=== PATIENT | male | born 1985 | race Caucasian/White ===

== ENCOUNTER → 2017-11-30 15:44 | Outpatient (CLI) | payer OTHER, MEDICAID, SELFPAY | PROVIDERS: Family Provider Family Medicine; PCP Family Medicine; Visit Provider Otolaryngology | DX: H60.90 Unspecified otitis externa, unspecified ear (principal) | CPT/HCPCS: 87070; 87075; 87076; 87077; 87186; 87205 ==

== ENCOUNTER → 2018-09-27 07:15 | Outpatient (CLI) | payer OTHER, SELFPAY ==
--- NOTE | 2018-09-27 10:36 | NEURO ---
NCS and/or EMG Patient Report Ordering Doctor: Isaak Gooden DATE OF SERVICE: 09/27/18 This is a left upper extremity EMG and nerve conduction study performed on this 33-year-old male with a history of type 2 diabetes with a hemoglobin A1c of 8.5. He reports numbness tingling and weakness in his left hand and arm for a few years worse in the past month. He works in a saw mill. He describes the most significant symptoms as an digit for but to a lesser extent in digits 1 through 3. Digit 5 is unaffected. Left upper extremity sensory motor nerve conduction study demonstrates prolongation of the median motor and sensory distal latency with preservation of amplitudes and conduction velocities. The radial sensory response is normal as is the ulnar sensory response. The median F wave latency is mildly prolonged compared to the ulnar F-wave latency. Left upper extremity needle electromyography is performed. Muscles evaluated included the abductor pollicis brevis, first dorsal interosseous, brachioradialis, biceps, triceps and deltoid muscles. The abductor pollicis brevis muscle strain normal insertional activity with absence of pathologic spontaneous activity however, there was increased amplitude of motor units. All other muscles demonstrated normal insertional activity with absence of pathologic spontaneous activity. Motor unit potential recruitment pattern and amplitude was otherwise normal. Impression this is an abnormal electrophysiologic study of the left upper extremity consistent with moderate to severe carpal tunnel syndrome at the left wrist.
--- OUTSIDE RECORDS SUMMARY | 2018-11-22 11:48 | XMS RPT_ITS ---
:1985 Author Organization OHIP Care Team Providers Name Role Phone Woody Soliman Attending Unavailable Woody Soliman Referring Unavailable LUCINA RIOS Primary Care Unavailable Isaak Gooden Attending Unavailable Isaak Gooden Referring Unavailable LUCINA RIOS Primary Care Unavailable PROBLEMS PROBLEMS DATE TYPE CONDITION / CODE ATTENDING STATUS SOURCE 02/03/2018 Unknown H60.90 - Wilfredo Soliman Unspecified Woody [facility] otitis externa, [facility] unspecified ear / Repository H60.90(ICD-10) PROCEDURES PROCEDURES No Procedure Records FoundRESULTS RESULTS NCS AND/OR EMG Observed: 09/27/2018 Status: F Source: [place] PATIENT 4:37 PM [facility] REPOSITORY [facility] Pulmonary Services/Neurology [address] [place] [address] MR#: [id number] Acct: [id number] Name: TRAY PAYNE Rep #: [id number] : 1985 33 From: Vinny Villanueva MD Referring Dr: Isaak Gayle Status: REG CLI Ordering Dr: Date: Location: [facility] Sex: M C NCS and/or EMG Patient Report Ordering Doctor: Isaak Gooden DATE OF SERVICE: 09/27/18 This is a left upper extremity EMG and nerve conduction study performed on this 33-year-old male with a history of type 2 diabetes with a hemoglobin A1c of 8.5. He reports numbness tingling and weakness in his left hand and arm for a few years worse in the past month. He works in a saw mill. He describes the most significant symptoms as an digit for but to a lesser extent in digits 1 through 3. Digit 5 is unaffected. Left upper extremity sensory motor nerve conduction study demonstrates prolongation of the median motor and sensory distal latency with preservation of amplitudes and conduction velocities. The radial sensory response is normal as is the ulnar sensory response. The median F wave latency is mildly prolonged compared to the ulnar F-wave latency. Left upper extremity needle electromyography is performed. Muscles evaluated included the abductor pollicis brevis, first dorsal interosseous, brachioradialis, biceps, triceps and deltoid muscles. The abductor pollicis brevis muscle strain normal insertional activity with absence of pathologic spontaneous activity however, there was increased amplitude of motor units. All other muscles demonstrated normal insertional activity with absence of pathologic spontaneous activity. Motor unit potential recruitment pattern and amplitude was otherwise normal. Impression this is an abnormal electrophysiologic study of the left upper extremity consistent with moderate to severe carpal tunnel syndrome at the left wrist. 09/27/18 1637 <Electronically signed by Vinny Villanueva MD> Date Vinny Villanueva MD CC: Lucina Rios MD; Vinny Villanueva MD; Isaak CARRERA Date Dictated: 09/27/186 Date Transcribed: [id number]/27/[id number] License Issuer: ROULA Signed CNOV Observed: 08/21/2018 Status: COMPLETED Source: [place] 7:00 AM [facility] REPOSITORY Office Visit (WSTR) TRAY PAYNE ([id number]) 1985 M Date Time Provider Department 08/21/18 7:00 AM [facility] During your visit today, we recorded the following information about you: Temperature Pulse Respiration Blood pressure 97.7 degrees 78/minute 16/minute 122/80 Weight 87.5 kg Sammi LEEROY Alvarez 08/21/2018 7:05 AM Signed Subjective HPI Tray Payne is a 33 year old male who presents today for CC of possible pink eye. He has yellow green drainage, and a red eye. He denies any loss or change of vision or sharp pain in eye. Onset/Duration: Tuesday and is worsening. Alleviating/Treatment: Tried polymixin B sulfate for 2 days without relief Aggravating: nothing Risk factors: H/o conjunctivitis, last problem was 2 weeks ago. BP 122/80 Pulse 78 Temp 36.5 ?C (97.7 ?F) (Tympanic) Resp 16 Wt 87.5 kg (193 lb) ALLERGIES Allergen Reactions - Ciprofloxacin Rash - Seasonal Allergies Unknown There is no problem list on file for this patient. No family history on file. Social History Marital status: Single Spouse name: Years of education: Number of children: Social History Main Topics Smoking status: Never Smoker Smokeless tobacco: Never Used PAST MEDICAL HISTORY Diagnosis Date - Diabetes (HCC) 10/2014 - HTN (hypertension) 10/2014 Review of Systems Constitutional: Negative for chills, fever, malaise/fatigue and weight loss. HENT: Negative for congestion, ear discharge, ear pain and sore throat. Eyes: Positive for discharge and redness. Negative for pain (mild irritation.). Respiratory: Negative for cough. Gastrointestinal: Negative for abdominal pain, diarrhea, nausea and vomiting. Musculoskeletal: Negative for myalgias. Neurological: Negative for headaches. Objective Physical Exam Constitutional: He is oriented to person, place, and time and well-developed, well-nourished, and in no distress. HENT: Head: Normocephalic and atraumatic. Right Ear: Tympanic membrane, external ear and ear canal normal. Tympanic membrane is not injected, not erythematous, not retracted and not bulging. No middle ear effusion. Left Ear: Tympanic membrane, external ear and ear canal normal. Tympanic membrane is not injected, not erythematous, not retracted and not bulging. No middle ear effusion. Nose: Nose normal. Right sinus exhibits no maxillary sinus tenderness and no frontal sinus tenderness. Left sinus exhibits no maxillary sinus tenderness and no frontal sinus tenderness. Mouth/Throat: Uvula is midline, oropharynx is clear and moist and mucous membranes are normal. No oropharyngeal exudate, posterior oropharyngeal edema, posterior oropharyngeal erythema or tonsillar abscesses. Eyes: Pupils are equal, round, and reactive to light. EOM are normal. Right eye exhibits discharge (yellow). Right conjunctiva is injected. Fundoscopic exam: The right eye shows red reflex. The left eye shows red reflex. Neck: Normal range of motion. Neck supple. Pulmonary/Chest: Effort normal. Lymphadenopathy: Head (right side): No submental, no submandibular, no tonsillar, no preauricular and no posterior auricular adenopathy present. Head (left side): No submental, no submandibular, no tonsillar, no preauricular and no posterior auricular adenopathy present. He has no cervical adenopathy. Right: No supraclavicular adenopathy present. Left: No supraclavicular adenopathy present. Neurological: He is alert and oriented to person, place, and time. Skin: Skin is warm and dry. Psychiatric: Affect normal. Nursing note and vitals reviewed. ASSESSMENT/PLAN: 1. Acute conjunctivitis of right eye, unspecified acute conjunctivitis type - ICD9: 372.00, ICD10: H10.31 - see medication orders - course and contagiousness issues discussed, including hand washing. - Instructed to call if high fever, development of periorbital redness or swelling, eye pain, visual changes, concerns or if symptoms persist. - ERYTHROMYCIN 5 MG/GRAM (0.5 %) EYE OINTMENT Wash eye/eyes with diluted baby shampoo morning and night to remove crusted secretions. Place one drop of shampoo on washcloth and dilute with warm water and gently wash eyes. Use a different washcloth for each eye or you can use eye makeup remover pads for cleansing as well. Cool compresses for eye inflammation/irritation frequently throughout the day. Go to ER for any sudden loss of vision or severe vision changes. Follow up with PCP if no improvement in 1 week. Diagnosis and treatment plan were discussed and questions were answered to the patient's satisfaction. Pt acknowledged understanding of concepts and follow up plan. Specific signs and symptoms that would indicate the need for higher level of care were discussed in detail warranting prompt ER evaluation. LEEROY Johnson APRN.CNP 08/21/2018 7:03 AM Signed ASSESSMENT/PLAN: 1. Acute conjunctivitis of right eye, unspecified acute conjunctivitis type - ICD9: 372.00, ICD10: H10.31 - see medication orders - course and contagiousness issues discussed, including hand washing. - Instructed to call if high fever, development of periorbital redness or swelling, eye pain, visual changes, concerns or if symptoms persist. - ERYTHROMYCIN 5 MG/GRAM (0.5 %) EYE OINTMENT Wash eye/eyes with diluted baby shampoo morning and night to remove crusted secretions. Place one drop of shampoo on washcloth and dilute with warm water and gently wash eyes. Use a different washcloth for each eye or you can use eye makeup remover pads for cleansing as well. Cool compresses for eye inflammation/irritation frequently throughout the day. Go to ER for any sudden loss of vision or severe vision changes. Follow up with PCP if no improvement in 1 week. Referring Provider: SELF [[id number]] Allergies As of Date: 08/21/2018 Noted Allergy Reaction CIPROFLOXACIN 01/20/2018 2 - Rash SEASONAL ALLERGIES 09/27/2014 16 - Unknown Date Reviewed: 08/21/2018 Reviewed by: Sammi Alvarez - Fully Assessed Reason for Visit: Eye Problem [43] Cmt: right eye red, matting and swollen x 2 days, using polytrim Reason For Visit History Recorded Primary Visit Diagnosis:Acute conjunctivitis of right eye, unspecified acute conjunctivitis type [H10.31] Order(s):erythromycin ophthalmic ointmentUse 1 application in both eyes twice daily for 7 days.Disp: 3.5 gRfl: 0 Prescriptions as of 08/21/2018 Sig: METFORMIN ORAL Take by mouth. CLARITIN ORAL Take by mouth. LISINOPRIL ORAL Take by mouth. INVOKANA ORAL Take by mouth. GLIPIZIDE ORAL Take by mouth. FLONASE NASAL Use in the nose. ERYTHROMYCIN 5 MG/GRAM (0.5 %* Use 1 application in both eye* CIPROFLOXACIN 0.3 %-DEXAMETHA* Use 4 Drops in the right ear * Patient not taking: Reported on 08/21/2018 CIPROFLOXACIN 0.3 %-DEXAMETHA* Use 4 Drops in the right ear * Patient not taking: Reported on 08/21/2018 Problem List As Of Date: 08/21/2018 (None) Other instructions from your clinician: ASSESSMENT/PLAN: 1. Acute conjunctivitis of right eye, unspecified acute conjunctivitis type - ICD9: 372.00, ICD10: H10.31 - see medication orders - course and contagiousness issues discussed, including hand washing. - Instructed to call if high fever, development of periorbital redness or swelling, eye pain, visual changes, concerns or if symptoms persist. - ERYTHROMYCIN 5 MG/GRAM (0.5 %) EYE OINTMENT Wash eye/eyes with diluted baby shampoo morning and night to remove crusted secretions. Place one drop of shampoo on washcloth and dilute with warm water and gently wash eyes. Use a different washcloth for each eye or you can use eye makeup remover pads for cleansing as well. Cool compresses for eye inflammation/irritation frequently throughout the day. Go to ER for any sudden loss of vision or severe vision changes. Follow up with PCP if no improvement in 1 week. Prescriptions ordered this encounter Disp Refills Start End ERYTHROMYCIN 5 MG/GRAM (0.5 %) EYE O* 3.5 g 0 08/21/2018 08/28/2018 Route: BOTH EYES Sig: Use 1 application in both eyes twice daily for 7 days. Letter Text Sammi Alvarez APRN.CNP Urgent Care [address] [address] Dept: [phone] 08/21/2018 Tray Payne [address] [address] To Whom it May Concern: This is to certify that Tray Adarsh Payne was seen at our office for medical care. Tray may return to work on 08.22.2018. If you have any questions please feel free to call. Sincerely: Sammi Alvarez APRN.CNP Encounter Status:Closed by SAMMI ALVAREZ CNP on 08/21/18 PROGRESS Observed: 08/21/2018 Status: COMPLETED Source: [place] 6:56 AM [facility] RE[facility] HNO ID: [id number] Author: Sammi Alvarez Service: (none) Author Type: Nurse Practitioner Type: Progress Notes Filed: 08/21/2018 7:05 AM Note Text: Subjective HPI Tray Payne is a 33 year old male who presents today for CC of possible pink eye. He has yellow green drainage, and a red eye. He denies any loss or change of vision or sharp pain in eye. Onset/Duration: Tuesday and is worsening. Alleviating/Treatment: Tried polymixin B sulfate for 2 days without relief Aggravating: nothing Risk factors: H/o conjunctivitis, last problem was 2 weeks ago. BP 122/80 Pulse 78 Temp 36.5 ?C (97.7 ?F) (Tympanic) Resp 16 Wt 87.5 kg (193 lb) ALLERGIES Allergen Reactions - Ciprofloxacin Rash - Seasonal Allergies Unknown There is no problem list on file for this patient. No family history on file. Social History Marital status: Single Spouse name: Years of education: Number of children: Social History Main Topics Smoking status: Never Smoker Smokeless tobacco: Never Used PAST MEDICAL HISTORY Diagnosis Date - Diabetes (HCC) 10/2014 - HTN (hypertension) 10/2014 Review of Systems Constitutional: Negative for chills, fever, malaise/fatigue and weight loss. HENT: Negative for congestion, ear discharge, ear pain and sore throat. Eyes: Positive for discharge and redness. Negative for pain (mild irritation.). Respiratory: Negative for cough. Gastrointestinal: Negative for abdominal pain, diarrhea, nausea and vomiting. Musculoskeletal: Negative for myalgias. Neurological: Negative for headaches. Objective Physical Exam Constitutional: He is oriented to person, place, and time and well-developed, well-nourished, and in no distress. HENT: Head: Normocephalic and atraumatic. Right Ear: Tympanic membrane, external ear and ear canal normal. Tympanic membrane is not injected, not erythematous, not retracted and not bulging. No middle ear effusion. Left Ear: Tympanic membrane, external ear and ear canal normal. Tympanic membrane is not injected, not erythematous, not retracted and not bulging. No middle ear effusion. Nose: Nose normal. Right sinus exhibits no maxillary sinus tenderness and no frontal sinus tenderness. Left sinus exhibits no maxillary sinus tenderness and no frontal sinus tenderness. Mouth/Throat: Uvula is midline, oropharynx is clear and moist and mucous membranes are normal. No oropharyngeal exudate, posterior oropharyngeal edema, posterior oropharyngeal erythema or tonsillar abscesses. Eyes: Pupils are equal, round, and reactive to light. EOM are normal. Right eye exhibits discharge (yellow). Right conjunctiva is injected. Fundoscopic exam: The right eye shows red reflex. The left eye shows red reflex. Neck: Normal range of motion. Neck supple. Pulmonary/Chest: Effort normal. Lymphadenopathy: Head (right side): No submental, no submandibular, no tonsillar, no preauricular and no posterior auricular adenopathy present. Head (left side): No submental, no submandibular, no tonsillar, no preauricular and no posterior auricular adenopathy present. He has no cervical adenopathy. Right: No supraclavicular adenopathy present. Left: No supraclavicular adenopathy present. Neurological: He is alert and oriented to person, place, and time. Skin: Skin is warm and dry. Psychiatric: Affect normal. Nursing note and vitals reviewed. ASSESSMENT/PLAN: 1. Acute conjunctivitis of right eye, unspecified acute conjunctivitis type - ICD9: 372.00, ICD10: H10.31 - see medication orders - course and contagiousness issues discussed, including hand washing. - Instructed to call if high fever, development of periorbital redness or swelling, eye pain, visual changes, concerns or if symptoms persist. - ERYTHROMYCIN 5 MG/GRAM (0.5 %) EYE OINTMENT Wash eye/eyes with diluted baby shampoo morning and night to remove crusted secretions. Place one drop of shampoo on washcloth and dilute with warm water and gently wash eyes. Use a different washcloth for each eye or you can use eye makeup remover pads for cleansing as well. Cool compresses for eye inflammation/irritation frequently throughout the day. Go to ER for any sudden loss of vision or severe vision changes. Follow up with PCP if no improvement in 1 week. Diagnosis and treatment plan were discussed and questions were answered to the patient's satisfaction. Pt acknowledged understanding of concepts and follow up plan. Specific signs and symptoms that would indicate the need for higher level of care were discussed in detail warranting prompt ER evaluation. Sammi Alvarez APRN.CRITICAL SYSTEMS TECHNICIAN PROGRESS Observed: 01/20/2018 Status: COMPLETED Source: [place] 9:22 AM [facility] REPOSITORY HNO ID: [id number] Author: Shahana (Judah) DONAL Ni.JUDAH Service: (none) Author Type: Nurse Practitioner Type: Progress Notes Filed: 01/20/2018 9:41 AM Note Text: Subjective HPI Tray Payne is a 32 year old male who presents with right eye feeling itchy and red, having a small amount of discharge. Two children currently have pink eye. He has not had any associated URI symptoms. Review of Systems Constitutional: Negative. Negative for chills and fever. HENT: Negative. Negative for congestion and sore throat. Eyes: Positive for discharge and redness. Respiratory: Negative. Negative for cough. Skin: Negative. Negative for rash. BP 118/82 Pulse 96 Temp 37.2 ?C (99 ?F) (Left Tympanic) Resp 24 Wt 93.4 kg (206 lb) PAST MEDICAL HISTORY Diagnosis Date - Diabetes (HCC) 10/2014 - HTN (hypertension) 10/2014 No past surgical history on file. ALLERGIES Ciprofloxacin; Seasonal Allergies MEDICATIONS trimethoprim-polymyxin eye drops (POLYTRIM) ophthalmic solution Use 1 Drop in the right eye four times daily for 7 days. ciprofloxacin-dexamethasone (CIPRODEX) otic suspension Use 4 Drops in the right ear twice daily. ciprofloxacin-dexamethasone (CIPRODEX) otic suspension Use 4 Drops in the right ear twice daily. METFORMIN HCL (METFORMIN ORAL) Take by mouth. LORATADINE (CLARITIN ORAL) Take by mouth. LISINOPRIL ORAL Take by mouth. CANAGLIFLOZIN (INVOKANA ORAL) Take by mouth. GLIPIZIDE ORAL Take by mouth. FLUTICASONE PROPIONATE (FLONASE NASAL) Use in the nose. No family history on file. Social History Substance Use Topics - Smoking status: Never Smoker - Smokeless tobacco: Never Used - Alcohol use Not on file Objective Physical Exam Constitutional: He is well-developed, well-nourished, and in no distress. HENT: Head: Normocephalic. Right Ear: Tympanic membrane, external ear and ear canal normal. Left Ear: Tympanic membrane, external ear and ear canal normal. Nose: Nose normal. No rhinorrhea. Mouth/Throat: Uvula is midline, oropharynx is clear and moist and mucous membranes are normal. Mucous membranes are not pale and not dry. No posterior oropharyngeal edema or posterior oropharyngeal erythema. Eyes: EOM are normal. Pupils are equal, round, and reactive to light. Right eye exhibits discharge. Left eye exhibits no discharge. Right conjunctiva is injected. Left conjunctiva is not injected. Neck: Neck supple. Cardiovascular: Normal rate, regular rhythm and normal heart sounds. Pulmonary/Chest: Effort normal and breath sounds normal. No respiratory distress. He has no wheezes. Lymphadenopathy: He has no cervical adenopathy. Neurological: He is alert. Skin: Skin is warm and dry. No rash noted. Nursing note and vitals reviewed. ASSESSMENT/PLAN: 1. Bacterial conjunctivitis - ICD9: 372.39, 041.9, ICD10: H10.9 - see medication orders - course and contagiousness issues discussed, including hand washing. - Instructed to call if high fever, development of periorbital redness or swelling, eye pain, visual changes, concerns or if symptoms persist. - Follow-up with your PCP in 3-5 days if symptoms have not improved or sooner if symptoms worsen - Discussed red flags and need for immediate medical evaluation if any occur. - Discussed supportive care treatment with fluids, rest and analgesia. - Discussed expected course of illness Shahana Ni APRN.CNP CNOV Observed: 01/20/2018 Status: COMPLETED Source: [place] 9:00 AM [facility] REPOSITORY Office Visit (WSTR) TRAY PAYNE ([id number]) 1985 M Date Time Provider Department 01/20/18 9:00 AM SHAHANA NI (JUDAH) [facility] During your visit today, we recorded the following information about you: Temperature Pulse Respiration Blood pressure 99 degrees 96/minute 24/minute 118/82 Weight 93.4 kg Shahana Ni APRN.CNP, APRN.CNP 01/20/2018 9:41 AM Addendum Subjective HPI Tray Payne is a 32 year old male who presents with right eye feeling itchy and red, having a small amount of discharge. Two children currently have pink eye. He has not had any associated URI symptoms. Review of Systems Constitutional: Negative. Negative for chills and fever. HENT: Negative. Negative for congestion and sore throat. Eyes: Positive for discharge and redness. Respiratory: Negative. Negative for cough. Skin: Negative. Negative for rash. BP 118/82 Pulse 96 Temp 37.2 ?C (99 ?F) (Left Tympanic) Resp 24 Wt 93.4 kg (206 lb) PAST MEDICAL HISTORY Diagnosis Date - Diabetes (HCC) 10/2014 - HTN (hypertension) 10/2014 No past surgical history on file. ALLERGIES Ciprofloxacin; Seasonal Allergies MEDICATIONS trimethoprim-polymyxin eye drops (POLYTRIM) ophthalmic solution Use 1 Drop in the right eye four times daily for 7 days. ciprofloxacin-dexamethasone (CIPRODEX) otic suspension Use 4 Drops in the right ear twice daily. ciprofloxacin-dexamethasone (CIPRODEX) otic suspension Use 4 Drops in the right ear twice daily. METFORMIN HCL (METFORMIN ORAL) Take by mouth. LORATADINE (CLARITIN ORAL) Take by mouth. LISINOPRIL ORAL Take by mouth. CANAGLIFLOZIN (INVOKANA ORAL) Take by mouth. GLIPIZIDE ORAL Take by mouth. FLUTICASONE PROPIONATE (FLONASE NASAL) Use in the nose. No family history on file. Social History Substance Use Topics - Smoking status: Never Smoker - Smokeless tobacco: Never Used - Alcohol use Not on file Objective Physical Exam Constitutional: He is well-developed, well-nourished, and in no distress. HENT: Head: Normocephalic. Right Ear: Tympanic membrane, external ear and ear canal normal. Left Ear: Tympanic membrane, external ear and ear canal normal. Nose: Nose normal. No rhinorrhea. Mouth/Throat: Uvula is midline, oropharynx is clear and moist and mucous membranes are normal. Mucous membranes are not pale and not dry. No posterior oropharyngeal edema or posterior oropharyngeal erythema. Eyes: EOM are normal. Pupils are equal, round, and reactive to light. Right eye exhibits discharge. Left eye exhibits no discharge. Right conjunctiva is injected. Left conjunctiva is not injected. Neck: Neck supple. Cardiovascular: Normal rate, regular rhythm and normal heart sounds. Pulmonary/Chest: Effort normal and breath sounds normal. No respiratory distress. He has no wheezes. Lymphadenopathy: He has no cervical adenopathy. Neurological: He is alert. Skin: Skin is warm and dry. No rash noted. Nursing note and vitals reviewed. ASSESSMENT/PLAN: 1. Bacterial conjunctivitis - ICD9: 372.39, 041.9, ICD10: H10.9 - see medication orders - course and contagiousness issues discussed, including hand washing. - Instructed to call if high fever, development of periorbital redness or swelling, eye pain, visual changes, concerns or if symptoms persist. - Follow-up with your PCP in 3-5 days if symptoms have not improved or sooner if symptoms worsen - Discussed red flags and need for immediate medical evaluation if any occur. - Discussed supportive care treatment with fluids, rest and analgesia. - Discussed expected course of illness LEEROY Agee APRN.CNP, APRN.CNP 01/20/2018 9:29 AM Signed CONJUNCTIVITIS GENERAL INFORMATION: Conjunctivitis is also known as pink eye. It is an irritation of the underside of the eyelid and the white part of the eye. Conjunctivitis can be caused by infection, chemical irritation, or allergy. If infectious, it is very contagious. INSTRUCTIONS: The doctor has prescribed antibiotic drops or ointment. Use them as prescribed. Do not touch the dropper to the eye. Throw out the medication after completing treatment. If the doctor only prescribed the medication to be placed in one eye, and the other eye starts to bother you with the same symptoms, you may treat it in the same fashion. To ease discomfort, apply a warm or cool clean washcloth to your eye several times a day for 10 to 20 minutes. Gently wipe away discharge from the eyes with tissues. Wash your hands often with soap and use paper towels to dry them. Do not share towels, washcloths, or pillows. This could spread infection. Do not use eye make-up until the infection has resolved. Keep contact lenses out of eyes until the irritation is gone. Discard any eye make-up which you may have contaminated before the infection was diagnosed, and any eye make-up older than one year. Children should not return to school or daycare until the eye is no longer pink. Do not drive or operate machinery if your vision is blurred. Wear sunglasses if your eyes are sensitive to the light. CONTACT YOUR DOCTOR IF YOU OR YOUR CHILD NOTICE: *The eye is still pink 3 days after starting treatment with medicine. *Pain in the eye increases. *The redness is spreading. *Vision becomes blurred. *You have a temperature over 100.5 F (38 C). Referring Provider: SELF [200] Allergies As of Date: 01/20/2018 Noted Allergy Reaction CIPROFLOXACIN 01/20/2018 2 - Rash SEASONAL ALLERGIES 09/27/2014 16 - Unknown Date Reviewed: 01/20/2018 Reviewed by: Alexandria Paredes Ma - Fully Assessed Reason for Visit: Eye Problem [43] Primary Visit Diagnosis:Bacterial conjunctivitis [H10.9] Order(s):trimethoprim-polymyxin eye drops (POLYTRIM) ophthalmic solutionUse 1 Drop in the right eye four times daily for 7 days.Disp: 1.4 mLRfl: 0 Prescriptions as of 01/20/2018 Sig: POLYMYXIN B SULFATE 10,000 UN* Use 1 Drop in the right eye f* CIPROFLOXACIN 0.3 %-DEXAMETHA* Use 4 Drops in the right ear * CIPROFLOXACIN 0.3 %-DEXAMETHA* Use 4 Drops in the right ear * METFORMIN ORAL Take by mouth. CLARITIN ORAL Take by mouth. LISINOPRIL ORAL Take by mouth. INVOKANA ORAL Take by mouth. GLIPIZIDE ORAL Take by mouth. FLONASE NASAL Use in the nose. Problem List As Of Date: 01/20/2018 (None) Other instructions from your clinician: CONJUNCTIVITIS GENERAL INFORMATION: Conjunctivitis is also known as pink eye. It is an irritation of the underside of the eyelid and the white part of the eye. Conjunctivitis can be caused by infection, chemical irritation, or allergy. If infectious, it is very contagious. INSTRUCTIONS: The doctor has prescribed antibiotic drops or ointment. Use them as prescribed. Do not touch the dropper to the eye. Throw out the medication after completing treatment. If the doctor only prescribed the medication to be placed in one eye, and the other eye starts to bother you with the same symptoms, you may treat it in the same fashion. To ease discomfort, apply a warm or cool clean washcloth to your eye several times a day for 10 to 20 minutes. Gently wipe away discharge from the eyes with tissues. Wash your hands often with soap and use paper towels to dry them. Do not share towels, washcloths, or pillows. This could spread infection. Do not use eye make-up until the infection has resolved. Keep contact lenses out of eyes until the irritation is gone. Discard any eye make-up which you may have contaminated before the infection was diagnosed, and any eye make-up older than one year. Children should not return to school or daycare until the eye is no longer pink. Do not drive or operate machinery if your vision is blurred. Wear sunglasses if your eyes are sensitive to the light. CONTACT YOUR DOCTOR IF YOU OR YOUR CHILD NOTICE: *The eye is still pink 3 days after starting treatment with medicine. *Pain in the eye increases. *The redness is spreading. *Vision becomes blurred. *You have a temperature over 100.5 F (38 C). Prescriptions ordered this encounter Disp Refills Start End POLYMYXIN B SULFATE 10,000 UNIT-TRIM* 1.4 * 0 01/20/2018 01/27/2018 Route: RIGHT EYE Sig: Use 1 Drop in the right eye four times daily for 7 days. Letter Text Shahana Ni APRN.[facility] Ur[facility] [address] [address] Dept: [phone] 01/20/2018 Tray Payne [facility] [address] To Whom it May Concern: This is to certify that Tray Payne was seen at our office for medical care. Tray must be absent from work today 01/20/18. If you have any questions please feel free to call. Sincerely: Shahana Ni APRN.[facility] Encounter Status:Closed by SHAHANA NI on 01/20/18 Observed: 11/30/2017 Status: F Source: JEANIE CULTURE, EAR/MASTOID 8:28 AM [facility] REPOSITORY RESULTS CALLED TO SHAHANA 12/02/17 0908 Gemma Wirght. REPORT READ BACK BY SAME. Comments: OTITIS EXTERNA Gram Stain Gram Stain 1+ White Blood Cells 3+ Gram positive cocci Ear/Mast Cult Copy of report sent to Infection Control Printer [id number] 12/02/17 0748 [facility]. ORGANISM 1: Meth. resistant Staph. aureus Amount Growth 3+ Meth. resistant Staph. aureus: REACTION Benzylpenicillin NF >=0.5 R Cefoxitin *NF + Clindamycin $$ <=0.25 S Inducable Clindamycin Resistan - Erythromycin $ >=8 R Gentamicin $ <=0.5 S Levofloxacin $ 4 I Linezolid $$$$ 2 S Oxacillin NF >=4 R Tigecycline $$$$ <=0.12 S Rifampin $$ <=0.5 S Tetracycline NF <=1 S Trimethoprim/Sulfametho $ <=10 S Vancomycin $ 1 S (NF) indicates non-formulary drug at [facility]. Approval by Infectious Disease Specialist required before non-formulary drugs may be ordered and/or dispensed. * CLSI guidelines does not recommend testing of cephalosporins. This interpretation is deduced from Beta-lactam/penicillin results. Cult, Anaerobic ORGANISM 1: Proprionibacterium acnes Performed By: #### M100.1100 #### [facility] [address] [place], [address] PROGRESS Observed: 10/31/2017 Status: COMPLETED Source: [place] 11:22 AM [facility] REPOSITORY [facility] ID: [id number] Author: Binta Diaz (Pa) Service: (none) Author Type: Physician Dynamo Repairer Type: Progress Notes Filed: 10/31/2017 11:34 AM Note Text: HPI 32 yo male presents with right ear pain x 10 days. He states that he has been treated for right ear infections since May 2017. He has been treated with Ciprodex and Amoxicillin and Augmentin on two separate occasions. He states that he has plans to see an ENT in the very near future. Review of Systems Constitutional: Negative for chills and fever. HENT: Positive for ear discharge and ear pain. Negative for hearing loss and tinnitus. All other systems reviewed and are negative. PAST MEDICAL HISTORY Diagnosis Date - Diabetes (HCC) 10/2014 - HTN (hypertension) 10/2014 No past surgical history on file. ALLERGIES Seasonal Allergies MEDICATIONS ciprofloxacin-dexamethasone (CIPRODEX) otic suspension Use 4 Drops in the right ear twice daily. METFORMIN HCL (METFORMIN ORAL) Take by mouth. LORATADINE (CLARITIN ORAL) Take by mouth. LISINOPRIL ORAL Take by mouth. CANAGLIFLOZIN (INVOKANA ORAL) Take by mouth. GLIPIZIDE ORAL Take by mouth. FLUTICASONE PROPIONATE (FLONASE NASAL) Use in the nose. No family history on file. Social History Substance Use Topics - Smoking status: Never Smoker - Smokeless tobacco: Never Used - Alcohol use Not on file Physical Exam Constitutional: He is oriented to person, place, and time and well-developed, well-nourished, and in no distress. HENT: Left Ear: External ear normal. Right ear: erythematous and edematous EAC. TM: with large effusion. Eyes: Conjunctivae are normal. Neck: Normal range of motion. Neck supple. Cardiovascular: Normal rate, normal heart sounds and intact distal pulses. Pulmonary/Chest: Effort normal. No stridor. Abdominal: Soft. Bowel sounds are normal. Lymphadenopathy: He has no cervical adenopathy. Neurological: He is alert and oriented to person, place, and time. Skin: Skin is warm and dry. Psychiatric: Affect normal. Blood pressure 120/86, pulse 104, temperature 36.9 ?C (98.5 ?F), temperature source Tympanic, resp. rate 22, weight 93 kg (205 lb). ASSESSMENT/PLAN: 1. Acute otitis externa of right ear, unspecified type - ICD9: 380.10, ICD10: H60.501 (primary diagnosis) - CIPROFLOXACIN 0.3 %-DEXAMETHASONE 0.1 % EAR DROPS,SUSPENSION 2. Acute otitis media, right - ICD9: 382.9, ICD10: H66.91 - The patient should also be given OTC decongestants prn for the first 5-7 days of treatment. - AMOXICILLIN 500 MG TABLET Recommend ENT consultation. Return to the clinic if needed. THOMAS Samuels Observed: 10/31/2017 Status: COMPLETED Source: [place] 10:30 AM [facility] REPOSITORY [facility] TRAY [facility]YNE ([id number]) 1985 M Date Time Provider Department 10/31/17 10:30 AM BINTA DIAZ (DEBI) [facility] During your visit today, we recorded the following information about you: Temperature Pulse Respiration Blood pressure 98.5 degrees 104/minute 22/minute 120/86 Weight 93 kg Binta Diaz PA-C 10/31/2017 11:34 AM Signed HPI 32 yo male presents with right ear pain x 10 days. He states that he has been treated for right ear infections since May 2017. He has been treated with Ciprodex and Amoxicillin and Augmentin on two separate occasions. He states that he has plans to see an ENT in the very near future. Review of Systems Constitutional: Negative for chills and fever. HENT: Positive for ear discharge and ear pain. Negative for hearing loss and tinnitus. All other systems reviewed and are negative. PAST MEDICAL HISTORY Diagnosis Date - Diabetes (HCC) 10/2014 - HTN (hypertension) 10/2014 No past surgical history on file. ALLERGIES Seasonal Allergies MEDICATIONS ciprofloxacin-dexamethasone (CIPRODEX) otic suspension Use 4 Drops in the right ear twice daily. METFORMIN HCL (METFORMIN ORAL) Take by mouth. LORATADINE (CLARITIN ORAL) Take by mouth. LISINOPRIL ORAL Take by mouth. CANAGLIFLOZIN (INVOKANA ORAL) Take by mouth. GLIPIZIDE ORAL Take by mouth. FLUTICASONE PROPIONATE (FLONASE NASAL) Use in the nose. No family history on file. Social History Substance Use Topics - Smoking status: Never Smoker - Smokeless tobacco: Never Used - Alcohol use Not on file Physical Exam Constitutional: He is oriented to person, place, and time and well-developed, well-nourished, and in no distress. HENT: Left Ear: External ear normal. Right ear: erythematous and edematous EAC. TM: with large effusion. Eyes: Conjunctivae are normal. Neck: Normal range of motion. Neck supple. Cardiovascular: Normal rate, normal heart sounds and intact distal pulses. Pulmonary/Chest: Effort normal. No stridor. Abdominal: Soft. Bowel sounds are normal. Lymphadenopathy: He has no cervical adenopathy. Neurological: He is alert and oriented to person, place, and time. Skin: Skin is warm and dry. Psychiatric: Affect normal. Blood pressure 120/86, pulse 104, temperature 36.9 ?C (98.5 ?F), temperature source Tympanic, resp. rate 22, weight 93 kg (205 lb). ASSESSMENT/PLAN: 1. Acute otitis externa of right ear, unspecified type - ICD9: 380.10, ICD10: H60.501 (primary diagnosis) - CIPROFLOXACIN 0.3 %-DEXAMETHASONE 0.1 % EAR DROPS,SUSPENSION 2. Acute otitis media, right - ICD9: 382.9, ICD10: H66.91 - The patient should also be given OTC decongestants prn for the first 5-7 days of treatment. - AMOXICILLIN 500 MG TABLET Recommend ENT consultation. Return to the clinic if needed. Binta Diaz PA-C Referring Provider: SELF [200] Allergies As of Date: 10/31/2017 Noted Allergy Reaction SEASONAL ALLERGIES 09/27/2014 16 - Unknown Date Reviewed: 10/31/2017 Reviewed by: Laura Chapman LPN - Fully Assessed Reason for Visit: Ear Pain [817] Cmt: Right x 10 day Primary Visit Diagnosis:Acute otitis externa of right ear, unspecified type [H60.501] Other Visit Diagnosis:Acute otitis media, right [H66.91] Order(s):Amoxicillin 500 mg tabletTake 1 tablet by mouth twice daily for 10 days.Disp: 20 tabletRfl: 0 ciprofloxacin-dexamethasone (CIPRODEX) otic suspensionUse 4 Drops in the right ear twice daily.Disp: 1 BottleRfl: 0 Prescriptions as of 10/31/2017 Sig: CIPROFLOXACIN 0.3 %-DEXAMETHA* Use 4 Drops in the right ear * METFORMIN ORAL Take by mouth. CLARITIN ORAL Take by mouth. LISINOPRIL ORAL Take by mouth. INVOKANA ORAL Take by mouth. GLIPIZIDE ORAL Take by mouth. FLONASE NASAL Use in the nose. AMOXICILLIN 500 MG TABLET Take 1 tablet by mouth twice * CIPROFLOXACIN 0.3 %-DEXAMETHA* Use 4 Drops in the right ear * Medication notes this encounter CIPROFLOXACIN 0.3 %-DEXAMETHASONE 0.1 % EAR DROPS,SUSPENSION >> Laura Chapman LPN 10/31/2017 10:57 AM >> LAURA CHAPMAN LPN TueOct 31, 2017 10:57 AM Not taking Problem List As Of Date: 10/31/2017 (None) Prescriptions ordered this encounter Disp Refills Start End AMOXICILLIN 500 MG TABLET 20 t* 0 10/31/2017 11/10/2017 Route: ORAL Sig: Take 1 tablet by mouth twice daily for 10 days. CIPROFLOXACIN 0.3 %-DEXAMETHASONE 0.* 1 Rene* 0 10/31/2017 Route: RIGHT EAR Sig: Use 4 Drops in the right ear twice daily. Encounter Status:Closed by FARSHAD GUZMAN, BINTA on 10/31/17 ALLERGIES ALLERGIES DATE TYPE / CODE NAME / CODE REACTION SEVERITY SOURCE 01/20/2018 DRUG CIPROFLOXACIN RASH [facility] INGREDI/[address] [place] [id number](SNOM Repository ED CT) 12/25/2015 Drug No Known Unknown Jeanie Allergy/416 Allergies/[id number] [facility] [id number]([facility](RXNORM) [facility] ED CT) Repository 09/27/2014 Environ/420 SEASONAL ALLERGIES UNKNOWN [facility] [id number]([facility] ED CT) Repository ENCOUNTERS ENCOUNTERS ADMIT/DISCHARGE ACCOUNT ADMITTING ENCOUNTER LOCATION SOURCE NUMBER CLASS 09/27/2018 [id number] [facility] ing:PSN Repository 08/21/2018/08/23/20 [id number] Ambulatory [address] Repository 01/20/2018/01/21/[id number] Repository 11/30/2017 [id number] [facility] ing:LABSPEC Repository 10/31/2017/11/01/[id number] Repository PAYERS PAYERS ENCOUNTER GUARANTOR PAYER SUBSCRIBER SOURCE 09/27/2018 TRAY A Primary TRAY A Jeanie [id number] Insurance:Eliseo NAIDU: [facility] [place]: [id number] [id number] Repository [address]Zrq: 330) Date:[phone] () [id number] BALL [phone]: 09/27/2018 Secondary NOT GIVENUNK Curtis Insurance:SELF PAY [facility] Number: Effective Repository Date:2018-08-15 11/30/2017 Tray A Primary Tray A Jeanie [id number] Insurance:AETMiguelito PayneDOB: [facility] Number: [id number] [id number] Repository [address]Fuc: 330) Date:[phone] (QA) [id number] FRANCY SIMMS [id number]: 11/30/2017 Secondary Tray Ware Insurance:CARELANDRY LoveB: [facility] Number: [id number] [id number] Repository Date:2017-11-30 [address]ATTN: [place] [address]IH: 11/30/2017 Tertiary NOT GIVENBOB Ware Insurance:SELF PAY [facility] Number: Effective Repository Date:2017-11-30
== END ==
PROVIDERS: Family Provider Family Medicine; PCP Family Medicine; Referring Provider Physician Assistant; Visit Provider Physician Assistant
DX: R20.2 Paresthesia of skin (principal)
CPT/HCPCS: 95886; 95909

== ENCOUNTER 2020-01-06 17:15 | Emergency (ER) | payer OTHER, SELFPAY ==
[2020-01-06 17:16] VITALS: BP 122/73; PULSE 88; RESP 17; TEMP 36.2; O2SAT 96; BMI 62.1
--- NOTE | 2020-01-06 17:35 | EKG12_ITS ---
Test Reason : GENERAL ILLNESS Blood Pressure : / mmHG Vent. Rate : 088 BPM Atrial Rate : 088 BPM P-R Int : 144 ms QRS Dur : 110 ms QT Int : 384 ms P-R-T Axes : 044 104 044 degrees QTc Int : 464 ms Normal sinus rhythm Rightward axis Borderline ECG Confirmed by DAPHNE ANDRE, CLIFF ([id number]), restaurant expeditor RENE MAGUIRE ([id number]) on 01/07/2020 3:22:54 PM Referred By: AMY Confirmed By:CLIFF SERNA MD
[2020-01-06 17:36] LABS: Bedside Glucose 256 mg/dL (70-110)
[2020-01-06 17:46] LABS: Absolute Lymphocyte Count 0.36 X10^3/uL (0.83-4.51); Absolute Neutrophil Count 15.6 X10^3/uL (2.0-7.7); Basophil# 0.03 X10^3/uL; Basophil% 0.2 % (0-1); Eosinophil# 0.07 X10^3/uL; Eosinophils% 0.4 % (0-5); Hematocrit 51.4 % (40-54); Lymphocyte # 0.36 X10^3/ul (4.0); Lymphocyte % 2.1 % (19-41); Mean Corp Hgb Conc 33.1 g/dL (32-36); Mean Corpuscular Hgb 28.5 pg (27.0-32.0); Mean Corpuscular Volume 86.2 fL (80-94); Mean Platelet Vol. 11.2 fl (6.2-12.0); Monocyte# 0.76 X10^3/uL; Monocyte% 4.5 % (0-10); NRBC Flagged by Analyzer 0 % (0-5); Neutrophil # 15.61 X10^3/uL (2.7-7.7); Neutrophil % 92.2 % (47-70); POSITIVE COUNT YES; POSITIVE DIFFERENTIAL YES; Platelet Count 218 K/mm3 (150-450); RBC Distribution Width CV 12.2 % (11.6-14.6); RBC Distribution Width SD 38.1 fl (35.1-43.9); Red Blood Count 5.96 M/mm3 (4.6-6.2); White Blood Count 16.9 K/mm3 (4.4-11.0)
[2020-01-06] MEDS: Ondansetron 4 MG/2 ML Vial IV (17:46)
[2020-01-06] MEDS: 0.9% Normal Saline 1,000 ML 999 ML IV ×2 (17:52→19:01)
[2020-01-06 17:53] LABS: Differential Indicated SCAN CRITERIA MET
[2020-01-06 17:56] LABS: Blood Gas Specimen Type VEN; O2 Delivery Device Room Air; SITE OTHER; Time Given 1730; VBG BASE EXCESS 4 mmol/L (-1.0-3.5); VBG Bicarbonate 30 mmol/L (22-26); VBG Oxygen Content 31 mmol/L (23-33); VBG PO2 44 mmHg (25-40); VBG SO2 76 % (50-70); VBG pCO2 54.2 mmHg (41-51); VBG pH 7.35 (7.32-7.42)
[2020-01-06 18:19] LABS: Differential Comment SCANNED
[2020-01-06 18:21] LABS: Anion Gap 9 (5-15); BUN 21 mg/dL (7-18); BUN/Creat Ratio 18.1 RATIO (10-20); Chloride 101 mmol/L (98-107); Creatinine, Serum 1.16 mg/dL (0.70-1.30); EST Glomerular Filtration Rate 77 mL/min (>60); Est Glom Filt Rate - Afr Amer 94 mL/min (>60); Estimated Creatinine Clearance 85.47 ml/min; Glucose 275 mg/dL (74-106); Phosphorus 3.9 mg/dL (2.5-4.9); Potassium 4.8 mmol/L (3.5-5.1); Sodium Level 137 mmol/L (136-145)
[2020-01-06 19:36] LABS: Bedside Glucose 164 mg/dL (70-110)
[2020-01-06 19:41] LABS: Bacteria 0 SEEN /hpf (None Seen); Mucous, Urine 0 SEEN /hpf (<or=2+); Squamous Epithelial Cells - UA 0 SEEN /hpf (0-5); White Blood Cells 0 SEEN /hpf (0-5)
--- NOTE | 2020-01-06 19:43 | ED.DCSUM_ITS ---
- ER Visit Summary Date of Service: 01/06/20 Chief Complaint: Vomiting and high blood sugar History of Present Illness: The patient is a [address] Hurley. Patient reports that he has not felt well since 11:00 this morning. States his blood sugar was 295 and usually runs in the 140s. He has vomited 3 times today. No blood in his emesis. He denies any abdominal pain. He has had chills and a headache is 5-10 in severity. Does have a history of similar headaches. Patient denies sick contacts. Has not been camping out of the country. No possible bad food exposure. Does not drink well water. No recent antibiotic use. Physical Examination: Vitals: Stable. Afebrile. General: Well-nourished and well-developed. Head: Normocephalic atraumatic. Neck: Supple, no lymphadenopathy. No JVD. Nontender. Cardiovascular: Regular rate and rhythm. No murmurs. Respiratory: No respiratory distress. Clear to auscultation bilaterally. Abdominal: Soft, nontender, nondistended, normal bowel sounds. No guarding, rebound, or peritoneal signs. Back: Nontender. Extremities: Nontender, no edema. Skin: Normal color, no rash. Neurologic: Alert and oriented ?3. Cranial nerves II through XII are intact. Normal strength and sensation. Psych: Normal affect. Test Results: Patient's EKG is sinus at [address] changes. UA shows 10-25 red blood cells with calcium oxalate crystals. Serum ketones are negative. Chem-7 shows a glucose 275 and BUN of 21. Venous blood gas showed a pH of 7.35. CBC shows a white count of 16.9 with a hemoglobin of 17. 90 segmented neutrophils and 2 lymphocytes. Clinical Impression(s) from Imaging Studies Abdomen/Pelvis CT 01/06/20 21:04 IMPRESSION: Nonspecific fatty infiltration of the liver.. Diffuse ileus with fecal retention in the colon Electronically Signed: Humberto Goodman MD at 22:35 EDT , Service support , Emergency Department Course and Treatment: Patient is on a SGLT2 medications of the possibility of euglycemic DKA was considered. However this is been ruled out. He was given 2 L of normal saline and Zofran IV. He is resting co mfortably. He has no further vomiting. Treatment Plan: Patient will be discharged with Zofran. Instructed to push fluids. Follow-up primary care physician 1 to 2 days if not improving. Return to the emergency department for any worsening symptoms. Disposition: To home in improved and stable condition. Impression: 1. Vomiting. 2. Hyperglycemia. 3. Rcy-ubiqatu-hjgjawtnd diabetes mellitus. This note was generated with [employer] dictation software. It may contain incorrect words, spelling, and punctuation that were not noted in review of the chart prior to signing ED Disposition - Plan for ED Patient: Instructions: VOMITING (8y-Adult) Prescriptions: Ondansetron [Zofran Odt] 4 mg PO Q8H PRN PRN #10 tablet PRN Reason: Nausea Referrals: Catracho Rios MD [Primary Care Provider] - 1-2 Days if not improving
[2020-01-06 19:54] LABS: Color, Urine Yellow (Yellow); Glucose, Dipstick 1000 mg/dl (Normal); Ketone-Dipstick 50 mg/dl (Negative); Leukocyte Esterase-Dipstick Negative /ul (Negative); Nitrite-Dipstick Negative (Negative); Occult Blood-Urine Negative /ul (Negative); Protein-Dipstick Negative (Negative); Urine Bilirubin Dipstick Negative (Negative); Urine Clarity Clear (Clear); Urine Urobilinogen Normal (Normal); Urine pH 6.5 (5.0 - 8.0)
[2020-01-06 20:34] VITALS: BP 147/74; PULSE 100; RESP 18; O2SAT 96
[2020-01-06 20:44] LABS: Calcium Oxalate Crystals Ur 2+ /hpf (<or=2+); Red Blood Cells-Urine 10-25 SEEN /hpf (0-5)
--- NOTE | 2020-01-06 21:04 | CT_ITS ---
STUDY: CT ABDOMEN AND PELVIS WITHOUT CONTRAST REASON FOR EXAM: Male, 34 years old. N/V/HYPERGLYCEMIA. Microscopic hematuria RADIATION DOSAGE (If Supplied By Facility): CTDIvol = ( 9.97 ) mGy, DLP = ( 542.99 ) mGycm TECHNIQUE: Transaxial images were obtained from the dome of the diaphragm to the symphysis pubis without oral contrast, and without intravenous contrast. Sagittal and coronal images were reconstructed. Individualized dose optimization techniques were used for this CT. COMPARISON: None. FINDINGS: The visualized lung bases are unremarkable. The visualized portions of the heart are within normal limits. Small hiatal hernia is present. Liver is fatty infiltrated without mass or bile duct dilatation. Normal gallbladder and extrahepatic biliary system. Normal spleen. Normal pancreas. Normal bilateral adrenal glands. Normal right kidney. Normal left kidney. Normal visualized stomach. Nonspecific diffuse ileus pattern with fecal retention in the colon. The appendix is visualized and appears normal. Normal abdominal aorta. Normal inferior vena cava. Normal retroperitoneum. Mild nonspecific bladder distention. Normal abdominal wall. Normal osseous structures. CT/Abdomen/Pelvis without Cont IMPRESSION: Nonspecific fatty infiltration of the liver.. Diffuse ileus with fecal retention in the colon Electronically Signed: Humberto Goodman MD at 22:35 EDT , Service support ,
[2020-01-06 23:06] VITALS: BP 121/83; PULSE 89; RESP 15; O2SAT 98
== END 2020-01-06 23:07 | disposition home or self-care (01) ==
LOC: ED 18:14
PROVIDERS: Emergency Provider Emergency Medicine; PCP Family Medicine
DX: R11.2 Nausea with vomiting, unspecified (principal); E11.65 Type 2 diabetes mellitus with hyperglycemia; I10 Essential (primary) hypertension; Z79.84 Long term (current) use of oral hypoglycemic drugs
CPT/HCPCS: 74176; 80048; 81001; 82009; 82803; 82962; 83735; 84100; 85025; 93005; 96361; 96374; 99283; J7030; A4216; J2405

== ENCOUNTER 2022-07-01 13:00 | Emergency (ER) | payer OTHER, SELFPAY ==
[2022-07-01 13:01] VITALS: BP 114/74; PULSE 110; RESP 14; TEMP 36.8; O2SAT 100; BMI 31.0
--- NOTE | 2022-07-01 13:33 | EDS_ITS ---
HPI History of Present Illness Chief Complaint: Upper Extremity Injury Detail of Chief Complaint: Pain and discoloration to hands Informant: patient and spouse/S.O. Narrative Narrative: Patient presents to the emergency department with sudden onset of pallor to his hands as well as discoloration up towards the forearms of the skin. Patient also had some numbness in both hands. Symptoms started suddenly while he was sitting in a chair at work. He denies any cold exposures. He is never had this happen before. No history of Raynaud's syndrome. Patient denies any chest pain or shortness of breath. Patient went to urgent care and they showed the pictures to the medical practitioner who referred them to the emergency department. PFSH PFS Home Medications empagliflozin 12.5 mg-metformin 500 mg tablet 1 ea PO BID 01/06/20 [History Last Taken Unknown] glipizide 10 mg tablet 10 mg PO BID 01/06/20 [History Last Taken Unknown] lisinopril 10 mg tablet 10 mg PO DAILY 01/06/20 [History Last Taken Unknown] ondansetron 4 mg disintegrating tablet 4 mg PO Q8H PRN PRN Nausea #10 tabs 01/06/20 [Rx Last Taken Unknown] Allergy/AdvReac Type Severity Reaction Status Date / Time ciprofloxacin [From Cipro] Allergy Hives Verified 07/01/22 13:01 Social History Smoking Status: Never smoker ROS ROS ED Review of Systems ROS Unobtainable: other Constitutional Constitutional ED: Reports lethargy; Denies chills, fever(s), sweats or weight loss Eyes Eyes: Denies blurry vision, change in vision or diplopia ENT ENT ED: Denies rhinorrhea or sore throat Cardiovascular Cardiovascular: Reports chest pain and racing heartbeat; Denies orthopnea Respiratory/Chest Respiratory/Chest: Reports dyspnea and dyspnea on exertion; Denies cough, orthopnea or sputum Gastrointestinal Gastrointestinal: Denies abdominal pain, diarrhea, nausea or vomiting Genitourinary Genitourinary ED: Denies dysuria, hematuria or urinary frequency Musculoskeletal Musculoskeletal: Denies arthralgias, back pain, myalgias or neck pain Integumentary Reports rash and other Details: Skin discoloration to both hands and paresthesias ; Denies abscess or Abrasions Neurologic Neurologic: Denies headache(s) or weakness Psychiatric Psychiatric: Denies anxiety, depression or suicidal thoughts Endocrine Endocrinology: Denies polydipsia, polyphagia or polyuria Hematologic/Lymphatic Hematologic/Lymphatic: Denies easy bleeding, easy bruising or lymphadenopathy Allergic/Immunologic Allergic/Immunologic ED: Denies mouth swelling, tongue swelling or urticaria EXAM Physical Exam Const Vital Signs: 07/01/22 13:01 Temperature 98.2 F Temperature Source Temporal Pulse Rate 110 H Respiratory Rate 14 Blood Pressure 114/74 Blood Pressure Mean 87 Pulse Ox 100 Oxygen Delivery Method Room Air Positive well nourished and well developed General Appearance ED: well developed and NAD HEENT Reports TM's clear and moist mucous membranes normocephalic and atraumatic; Negative for trauma or tenderness Tympanic Membrane ED: Yes TM's clear Eyes PERRL and EOMs intact bilaterally General Eye ED: Negative for pale conjunctiva or scleral icterus Neck no lymphadenopathy, supple and no JVD General: Negative for tenderness Chest Wall inspection of chest normal and palpation of chest normal Chest: Negative for tenderness Resp normal respiratory effort and clear to auscultation bilaterally Effort and Inspection: Negative for respiratory distress or pain with movement Auscultation: Negative for rhonchi, wheezes or diminished lung sounds Cardio regular rate, regular rhythm, S1 normal heart sound, S2 normal heart sound and no murmurs Peripheral Pulses: pulses 2+ throughout GI normal to inspection, nondistended, normoactive bowel sounds, soft to palpation, non-tender, non-distended and no masses Back/Spine no CVA tenderness and no thoracic nor lumbar tenderness Extremity normal to inspection Extremity Narrative: Patient has normal pulses in the upper extremities including radial and ulnar bilaterally. Patient has normal cap refill. Patient has normal color to his hands. Normal exam of both lower extremities also noted. General Extremety ED: Negative for edema General Extremity: Negative for edema Neuro oriented x3, CN's II-XII intact bilaterally, no sensory deficits noted and gait normal Sensorium / Orientation: awake, alert, oriented to person, oriented to place and oriented to time Motor Exam: strength 5/5 throughout and strength abnormal Psych mental status grossly normal Skin no rashes or lesions noted and no wounds MDM MDM MDM Narrative Medical decision making narrative: I was able to see the pictures the patient had brought with him regarding the discoloration of his hands which did appear pale with mottling onto the forearms. This skin color changes now resolved. I suspect patient had vasospa sm causing these changes such as possibly Raynaud's type phenomenon. Given this is patient's first episode I did not feel any further treatment was indicated. I advised him to avoid cold areas with his hands and feet. Patient to follow-up with his primary care physician if symptoms persist as he may need to be on nitrates or calcium channel blockers. Discharge Plan Triage Chief Complaint: Upper Extremity Injury ED Provider: Aria Hanks Dx/Rx/DC Orders Clinical Impression: Vasospasm, Raynaud's phenomenon (by history or observed) Instructions: Raynaud Disease Prescriptions: No Action glipizide 10 MG tablet 10 mg PO BID lisinopril 10 MG tablet 10 mg PO DAILY empagliflozin-metformin 1 EACH tablet 1 ea PO BID ondansetron 4 MG tablet 4 mg PO Q8H PRN PRN (Reason: Nausea) Qty: 10 0RF Primary Care Provider: Quintin Rosado Referrals: Quintin Rosado DO [Primary Care Provider] - 3-5 Days Disposition Disposition: Home, Self Care
== END 2022-07-01 13:57 | disposition home or self-care (01) ==
PROVIDERS: Emergency Provider Emergency Medicine; Visit Provider Emergency Medicine
DX: I73.00 Raynaud's syndrome without gangrene (principal)
CPT/HCPCS: 99282